=== PATIENT | female | born 1945 | race Caucasian/White ===

== ENCOUNTER 2017-07-06 08:58 | Emergency (ER) | payer OTHER ==
[~2017-07-06] VITALS: Ht 162.6 cm; Wt 90.7 kg
[2017-07-06 09:05] VITALS: BP 151/100
[2017-07-06] MEDS ORDERED: ASPirin 81 mg TAB PO ONE (09:15)
[2017-07-06 10:07] LABS: Basophils # (auto) 0.2 uL; Basophils % (auto) 2.2 % (0.0-2.0); Eosinophils # (auto) 0.1 uL; Eosinophils % (auto) 1.4 % (0.0-7.0); Hematocrit 39.9 % (36.0-46.0); Hemoglobin 13.3 g/dL (12.2-16.2); Lymphocytes # (auto) 1.6 uL; Lymphocytes % (auto) 19.6 % (10.0-50.0); Mean Corpuscular Hemoglobin 32.6 pg (28.0-32.0); Mean Corpuscular Hgb Conc. 33.4 g/dL (32.0-36.0); Mean Corpuscular Volume 97.5 fL (80.0-100.0); Monocytes # (auto) 0.4 uL; Monocytes % (auto) 4.3 % (0.0-12.0); Neutrophils % (auto) 72.5 % (37.0-80.0); Nucleated Red Blood Cells % 0.1 %; Platelet Count (auto) 246 10^3/uL (140-450); Red Blood Cells 4.09 10^6/uL (4.0-5.20); Red Cell Distribution Width 14.3 % (11.8-14.3); White Blood Cell 8.2 10^3/uL (4.4-10.8)
[2017-07-06 10:11] LABS: INR 0.92 (0.9-1.15); Partial Thromboplastin Time 28.5 sec (22.64-33.71)
[2017-07-06 10:16] LABS: Alanine Aminotransferase 18 U/L (13-56); Albumin 3.7 g/dL (3.4-5.0); Alkaline Phosphatase 71 U/L (45-117); Anion Gap 8 (5-15); Aspartate Aminotransferase 14 U/L (15-37); BUN/Creatinine Ratio 18.4; Bilirubin, Total 0.4 mg/dL (0.2-1.0); Blood Urea Nitrogen 16 mg/dL (7-18); Calcium 8.9 mg/dL (8.5-10.1); Carbon Dioxide 23 mmol/L (21-32); Chloride 108 mmol/L (98-107); GFR African American 83 mL/min; GFR Non-African American 68 mL/min; Glucose 126 mg/dL (74-106); Potassium 3.9 mmol/L (3.5-5.1); Sodium 139 mmol/L (136-145); Total Protein 8.4 g/dL (6.4-8.2)
[2017-07-06 10:59] LABS: Urine Bacteria NONE SEEN /hpf (None Seen); Urine Blood Negative /uL (Negative); Urine Mucus FEW (None Seen); Urine Specific Gravity 1.011 (1.001-1.035); Urine WBC <1 /hpf (0 - 5)
[2017-07-06] MEDS ORDERED: HYDROcodone-ACET 5/325MG TAB PO ONE (11:45)
== END 2017-07-06 12:13 | disposition home or self-care (01) ==
LOC: EDBD 08:58 → ER 08:58
DX: J44.9 Chronic obstructive pulmonary disease, unspecified (principal); F17.210 Nicotine dependence, cigarettes, uncomplicated
CPT/HCPCS: 36415; 71045; 80053; 81001; 83880; 84484; 85025; 85610; 85730; 93005

== ENCOUNTER 2022-05-23 04:10 | Inpatient (IN) | payer OTHER ==
[~2022-05-23] VITALS: Ht 162.6 cm; Wt 136.0 kg
[2022-05-23 05:03] LABS: Basophils # (auto) 0.1 10 ^3/uL (0-0.2); Basophils % (auto) 0.9 % (0.0-2.0); Eosinophils # (auto) 0 10 ^3/uL (0-0.8); Eosinophils % (auto) 0.6 % (0.0-7.0); Hematocrit 24.3 % (36.0-46.0); Hemoglobin 7.2 g/dL (12.2-16.2); Lymphocytes # (auto) 1.8 10 ^3/uL (0.4-5.4); Lymphocytes % (auto) 24.4 % (10.0-50.0); Mean Corpuscular Hemoglobin 21.1 pg (28.0-32.0); Mean Corpuscular Hgb Conc. 29.5 g/dL (32.0-36.0); Mean Corpuscular Volume 71.6 fL (80.0-100.0); Monocytes # (auto) 0.6 10 ^3/uL (0-1.3); Monocytes % (auto) 7.5 % (0.0-12.0); Neutrophils % (auto) 66.6 % (37.0-80.0); Nucleated Red Blood Cells % 0.1 %; Red Cell Distribution Width 19.3 % (11.8-14.3); White Blood Cell 7.5 10^3/uL (4.4-10.8)
[2022-05-23 05:12] LABS: Albumin 3.1 g/dL (3.4-5.0); Calcium 8.4 mg/dL (8.5-10.1); Partial Thromboplastin Time 24.9 sec (24.6-33.4); Potassium 4.4 mmol/L (3.5-5.1)
[2022-05-23] MEDS ORDERED: ALBUTEROL SULF 2.5 MG/0.5ML(0.5%) NEB SOLN NEB ONE (05:15)
[2022-05-23] MEDS ORDERED: IPRATROPIUM BROM 0.5 MG/2.5ML INH SOL NEB ONE (05:15)
[2022-05-23 05:16] LABS: Bilirubin, Total 0.5 mg/dL (0.2-1.0); Total Protein 7.4 g/dL (6.4-8.2)
[2022-05-23] MEDS ORDERED: ALBUTEROL MEDNEB 2.5 mg/3ml NEB ONE (05:28)
[2022-05-23 05:29] LABS: BUN/Creatinine Ratio 18.1
[2022-05-23] MEDS ORDERED: HEPARIN SODIUM (PORCINE) 5000 UNITS/ML 1ML VIAL IV ONE ×2 (05:45→13:05)
[2022-05-23] MEDS ORDERED: HEPARIN DRIP/D5W 100UNITS/ML 250 ML IV SCH ×4 (05:45→20:45)
[2022-05-23] MEDS ORDERED: FUROSEMIDE 20 MG/2 ML VIAL IV ONE (06:00)
[2022-05-23] MEDS ORDERED: ASPirin 325 MG TAB PO ONE (06:00)
[2022-05-23] MEDS ORDERED: DexAMETHasone SOD PHOS 10MG/1ML VIAL INJ IV ONE (06:00)
[2022-05-23] MEDS ORDERED: MORPHINE SULFATE INJ 2 MG/ml SYRG IV PRN (11:45)
[2022-05-23] MEDS ORDERED: NITROGLYCERIN 0.4 MG SL TAB SL PRN (11:45)
[2022-05-23] MEDS ORDERED: ALBUTEROL MEDNEB 2.5 mg/3ml NEB NEB PRN (12:30)
[2022-05-23] MEDS ORDERED: IPRATROPIUM BROM 0.5 MG/2.5ML INH SOL NEB PRN (12:30)
[2022-05-23 12:31] LABS: INR 0.97 (0.9-1.15); Partial Thromboplastin Time 31.4 sec (24.6-33.4)
[2022-05-23 15:08] VITALS: BP 125/45
[2022-05-23 15:23] VITALS: BP 129/63
[2022-05-23] MEDS ORDERED: ZOLPIDEM TARTRATE 5 MG TAB PO PRN (15:45)
[2022-05-23 15:48] VITALS: BP 132/56
[2022-05-23] MEDS ORDERED: ASPirin 81 mg TAB PO ONE (16:00)
[2022-05-23 17:27] VITALS: BP 117/71
[2022-05-23 20:19] LABS: INR 0.98 (0.9-1.15); Partial Thromboplastin Time 36.5 sec (24.6-33.4)
[2022-05-24 00:29] VITALS: BP 132/53
[2022-05-24 00:56] VITALS: BP 101/82
[2022-05-24 02:37] LABS: INR 1.03 (0.9-1.15); Partial Thromboplastin Time 62.1 sec (24.6-33.4)
[2022-05-24 02:45] VITALS: BP 133/55
[2022-05-24 03:00] VITALS: BP 133/53
[2022-05-24] MEDS ORDERED: LORazepam 2MG/ML-1ML VIAL IV PRN (04:45)
[2022-05-24] MEDS ORDERED: LORazepam 2MG/ML-1ML VIAL ONE (04:48)
[2022-05-24 06:34] LABS: Basophils # (auto) 0 10 ^3/uL (0-0.2); Basophils % (auto) 0.4 % (0.0-2.0); Eosinophils # (auto) 0 10 ^3/uL (0-0.8); Eosinophils % (auto) 0.3 % (0.0-7.0); Hematocrit 27.1 % (36.0-46.0); Hemoglobin 8.4 g/dL (12.2-16.2); Lymphocytes % (auto) 27.2 % (10.0-50.0); Mean Corpuscular Hemoglobin 22.9 pg (28.0-32.0); Mean Corpuscular Hgb Conc. 31.2 g/dL (32.0-36.0); Mean Corpuscular Volume 73.7 fL (80.0-100.0); Monocytes # (auto) 0.8 10 ^3/uL (0-1.3); Monocytes % (auto) 11.1 % (0.0-12.0); Neutrophils # (auto) 4.4 10 ^3/uL (1.6-8.6); Nucleated Red Blood Cells % 0.1 %; Red Blood Cells 3.67 10^6/uL (4.0-5.20); Red Cell Distribution Width 20.5 % (11.8-14.3); White Blood Cell 7.3 10^3/uL (4.4-10.8)
[2022-05-24 06:52] LABS: Albumin 2.8 g/dL (3.4-5.0); Calcium 8.2 mg/dL (8.5-10.1); Potassium 4.3 mmol/L (3.5-5.1)
[2022-05-24 06:58] LABS: BUN/Creatinine Ratio 20.2; Bilirubin, Total 0.6 mg/dL (0.2-1.0); Total Protein 6.3 g/dL (6.4-8.2)
[2022-05-24 08:55] LABS: INR 1.03 (0.9-1.15); Partial Thromboplastin Time 36.8 sec (24.6-33.4)
[2022-05-24] MEDS ORDERED: HEPARIN DRIP/D5W 100UNITS/ML 250 ML IV SCH (09:30)
[2022-05-24] MEDS ORDERED: ASPirin 81 mg TAB PO SCH (10:00)
[2022-05-24] MEDS: CEFTRIAXONE SODIUM 2 GM in D5W 5% 50 ML IV SCH (10:21)
[2022-05-24] MEDS: AZITHROMYCIN 500MG/ 250ML 250 ML IV SCH (10:21)
[2022-05-24 15:29] LABS: Basophils # (auto) 0.1 10 ^3/uL (0-0.2); Basophils % (auto) 0.6 % (0.0-2.0); Eosinophils # (auto) 0.1 10 ^3/uL (0-0.8); Mean Corpuscular Hemoglobin 22.9 pg (28.0-32.0); Monocytes # (auto) 0.7 10 ^3/uL (0-1.3); Neutrophils % (auto) 61.7 % (37.0-80.0)
[2022-05-24 15:31] LABS: Eosinophils % (auto) 1.2 % (0.0-7.0); Hematocrit 25.6 % (36.0-46.0); Lymphocytes # (auto) 2.4 10 ^3/uL (0.4-5.4); Lymphocytes % (auto) 28.2 % (10.0-50.0); Mean Corpuscular Hgb Conc. 31.1 g/dL (32.0-36.0); Mean Corpuscular Volume 73.7 fL (80.0-100.0); Monocytes % (auto) 8.3 % (0.0-12.0); Neutrophils # (auto) 5.3 10 ^3/uL (1.6-8.6); Red Blood Cells 3.48 10^6/uL (4.0-5.20); White Blood Cell 8.6 10^3/uL (4.4-10.8)
[2022-05-24 15:43] LABS: Partial Thromboplastin Time 55.3 sec (24.6-33.4)
[2022-05-24 21:55] LABS: INR 1.02 (0.9-1.15)
[2022-05-24] MEDS: PANTOPRAZOLE 40 MG/10 ML VIAL INJ IV SCH (22:00)
[2022-05-24] MEDS: HEPARIN DRIP/D5W 100UNITS/ML 250 ML IV SCH (22:36)
[2022-05-25 02:28] LABS: Basophils # (auto) 0.1 10 ^3/uL (0-0.2); Basophils % (auto) 0.7 % (0.0-2.0); Eosinophils # (auto) 0.2 10 ^3/uL (0-0.8); Eosinophils % (auto) 1.7 % (0.0-7.0); Hematocrit 25.9 % (36.0-46.0); Hemoglobin 7.9 g/dL (12.2-16.2); Lymphocytes # (auto) 2.4 10 ^3/uL (0.4-5.4); Lymphocytes % (auto) 24.5 % (10.0-50.0); Mean Corpuscular Hemoglobin 22.2 pg (28.0-32.0); Mean Corpuscular Hgb Conc. 30.3 g/dL (32.0-36.0); Mean Corpuscular Volume 73.5 fL (80.0-100.0); Monocytes # (auto) 0.8 10 ^3/uL (0-1.3); Monocytes % (auto) 7.8 % (0.0-12.0); Neutrophils # (auto) 6.4 10 ^3/uL (1.6-8.6); Neutrophils % (auto) 65.3 % (37.0-80.0); Red Blood Cells 3.53 10^6/uL (4.0-5.20); White Blood Cell 9.8 10^3/uL (4.4-10.8)
[2022-05-25 02:30] LABS: Red Cell Distribution Width 20.6 % (11.8-14.3)
[2022-05-25 03:56] LABS: Basophils # (auto) 0.1 10 ^3/uL (0-0.2); Basophils % (auto) 0.6 % (0.0-2.0); Eosinophils # (auto) 0.2 10 ^3/uL (0-0.8); Eosinophils % (auto) 2.5 % (0.0-7.0); Hematocrit 25.3 % (36.0-46.0); Hemoglobin 7.8 g/dL (12.2-16.2); Lymphocytes # (auto) 2.4 10 ^3/uL (0.4-5.4); Lymphocytes % (auto) 27.8 % (10.0-50.0); Mean Corpuscular Hemoglobin 22.5 pg (28.0-32.0); Mean Corpuscular Hgb Conc. 30.8 g/dL (32.0-36.0); Mean Corpuscular Volume 73.2 fL (80.0-100.0); Monocytes # (auto) 0.8 10 ^3/uL (0-1.3); Monocytes % (auto) 8.5 % (0.0-12.0); Neutrophils # (auto) 5.3 10 ^3/uL (1.6-8.6); Neutrophils % (auto) 60.6 % (37.0-80.0); Nucleated Red Blood Cells % 0.1 %; Red Blood Cells 3.46 10^6/uL (4.0-5.20); White Blood Cell 8.8 10^3/uL (4.4-10.8)
[2022-05-25 03:57] LABS: Red Cell Distribution Width 20.3 % (11.8-14.3)
[2022-05-25 04:00] LABS: Albumin 2.5 g/dL (3.4-5.0); Potassium 4.2 mmol/L (3.5-5.1)
[2022-05-25 04:02] LABS: INR 1.03 (0.9-1.15); Partial Thromboplastin Time 55.2 sec (24.6-33.4)
[2022-05-25 04:03] LABS: BUN/Creatinine Ratio 20.5; Bilirubin, Total 0.4 mg/dL (0.2-1.0); Total Protein 6.3 g/dL (6.4-8.2)
[2022-05-25] MEDS: AZITHROMYCIN 500MG/ 250ML 250 ML IV SCH (08:36)
[2022-05-25] MEDS: PANTOPRAZOLE 40 MG/10 ML VIAL INJ IV SCH ×2 (08:37→23:15)
[2022-05-25] MEDS: CEFTRIAXONE SODIUM 2 GM in D5W 5% 50 ML IV SCH (10:09)
[2022-05-25 11:07] LABS: INR 1.05 (0.9-1.15)
[2022-05-25 11:32] LABS: Partial Thromboplastin Time > 139.0 sec (24.6-33.4)
[2022-05-25] MEDS: HEPARIN DRIP/D5W 100UNITS/ML 250 ML IV SCH (11:40)
[2022-05-25 14:48] LABS: Basophils # (auto) 0.1 10 ^3/uL (0-0.2); Basophils % (auto) 0.8 % (0.0-2.0); Eosinophils # (auto) 0.3 10 ^3/uL (0-0.8); Hematocrit 25.6 % (36.0-46.0); Lymphocytes # (auto) 2.4 10 ^3/uL (0.4-5.4); Monocytes # (auto) 0.7 10 ^3/uL (0-1.3); Neutrophils # (auto) 3.4 10 ^3/uL (1.6-8.6); Nucleated Red Blood Cells % 0.1 %; White Blood Cell 6.8 10^3/uL (4.4-10.8)
[2022-05-25 14:50] LABS: Eosinophils % (auto) 4.1 % (0.0-7.0); Hemoglobin 7.9 g/dL (12.2-16.2); Lymphocytes % (auto) 34.9 % (10.0-50.0); Mean Corpuscular Hemoglobin 22.7 pg (28.0-32.0); Mean Corpuscular Hgb Conc. 30.8 g/dL (32.0-36.0); Mean Corpuscular Volume 73.8 fL (80.0-100.0); Neutrophils % (auto) 50.2 % (37.0-80.0); Red Blood Cells 3.47 10^6/uL (4.0-5.20)
[2022-05-25 15:20] LABS: Red Cell Distribution Width 21.1 % (11.8-14.3)
[2022-05-25 19:40] LABS: INR 1.03 (0.9-1.15); Partial Thromboplastin Time 47.2 sec (24.6-33.4)
[2022-05-25 22:18] VITALS: BP 151/68
[2022-05-25 22:27] VITALS: BP 151/68
[2022-05-25] MEDS ORDERED: BENA20TA14 PO (22:31)
[2022-05-25] MEDS ORDERED: METO25TA93 PO (22:31)
[2022-05-25] MEDS ORDERED: HYDR12.56 PO (22:31)
[2022-05-25] MEDS ORDERED: ASPI1TAB20 PO (22:32)
[2022-05-25] MEDS: MELATONIN 5 MG TAB PO SCH (23:15)
[2022-05-25] MEDS ORDERED: MELATONIN 5 MG TAB ONE (23:21)
[2022-05-26 02:11] LABS: Basophils # (auto) 0.1 10 ^3/uL (0-0.2); Eosinophils # (auto) 0.5 10 ^3/uL (0-0.8); Mean Corpuscular Hemoglobin 22.3 pg (28.0-32.0); Neutrophils # (auto) 3.9 10 ^3/uL (1.6-8.6); White Blood Cell 8.1 10^3/uL (4.4-10.8)
[2022-05-26 02:13] LABS: Basophils % (auto) 0.8 % (0.0-2.0); Eosinophils % (auto) 6.6 % (0.0-7.0); Hematocrit 25.7 % (36.0-46.0); Hemoglobin 7.7 g/dL (12.2-16.2); Lymphocytes # (auto) 2.7 10 ^3/uL (0.4-5.4); Lymphocytes % (auto) 33.9 % (10.0-50.0); Mean Corpuscular Hgb Conc. 30.1 g/dL (32.0-36.0); Mean Corpuscular Volume 74.4 fL (80.0-100.0); Monocytes # (auto) 0.8 10 ^3/uL (0-1.3); Monocytes % (auto) 10.2 % (0.0-12.0); Neutrophils % (auto) 48.5 % (37.0-80.0); Red Blood Cells 3.46 10^6/uL (4.0-5.20)
[2022-05-26 02:38] LABS: Red Cell Distribution Width 20.7 % (11.8-14.3)
[2022-05-26] MEDS: HEPARIN DRIP/D5W 100UNITS/ML 250 ML IV SCH ×2 (02:51→08:35)
[2022-05-26 04:31] LABS: Urine Bacteria FEW /hpf (None Seen); Urine Blood 3+ /uL (Negative); Urine Specific Gravity 1.008 (1.001-1.035); Urine WBC 4 /hpf (0 - 5)
[2022-05-26 05:00] VITALS: BP 139/63
[2022-05-26 08:00] VITALS: BP 143/75
[2022-05-26 09:06] LABS: INR 1.08 (0.9-1.15); Partial Thromboplastin Time 66.9 sec (24.6-33.4)
[2022-05-26] MEDS: PANTOPRAZOLE 40 MG/10 ML VIAL INJ IV SCH ×2 (09:47→21:21)
[2022-05-26] MEDS: CEFTRIAXONE SODIUM 2 GM in D5W 5% 50 ML IV SCH (09:47)
[2022-05-26] MEDS: AZITHROMYCIN 500MG/ 250ML 250 ML IV SCH (11:12)
[2022-05-26 12:00] VITALS: BP 146/68
[2022-05-26] MEDS ORDERED: diphenhdrAMINE HCL 50 MG/1 ML VL ONE (12:29)
[2022-05-26] MEDS ORDERED: fentaNYL CITRATE 100 MCG/2 ML VL ONE (12:30)
[2022-05-26] MEDS ORDERED: MIDAZOLAM HCL 2MG/2ML 2ml VIAL (1mg/ml) ONE (12:30)
[2022-05-26] MEDS ORDERED: LIDOCAINE VISCOUS 2% 15ML UD ONE (12:38)
[2022-05-26 15:52] LABS: INR 1.04 (0.9-1.15); Partial Thromboplastin Time 28.8 sec (24.6-33.4)
[2022-05-26 16:00] VITALS: BP 136/58
[2022-05-26] MEDS ORDERED: HEPARIN SODIUM (PORCINE) 5000 UNITS/ML 1ML VIAL IV ONE (16:30)
[2022-05-26 20:00] VITALS: BP 139/58
[2022-05-26 22:00] VITALS: BP 139/58
[2022-05-26 22:50] LABS: INR 1.04 (0.9-1.15); Partial Thromboplastin Time 31.5 sec (24.6-33.4)
[2022-05-27] VITALS (9 sets, daily range): BP systolic 128–150; BP diastolic 51–77
[2022-05-27] MEDS ORDERED: LIDOCAINE 2%HCL (LOCAL ANESTH.) INJ 20ML MDV ONE (07:57)
[2022-05-27] MEDS ORDERED: ANGIOMAX 250 MG VIAL IV ONE (08:01)
[2022-05-27] MEDS ORDERED: fentaNYL CITRATE 100 MCG/2 ML VL ONE (08:01)
[2022-05-27] MEDS ORDERED: MIDAZOLAM HCL 2MG/2ML 2ml VIAL (1mg/ml) ONE (08:02)
[2022-05-27] MEDS ORDERED: SODIUM CHL 0.9% 0 ML ONE (08:02)
[2022-05-27] MEDS ORDERED: VERAPAMIL 2.5MG/ML INJ 2ML VIAL IV ONE (08:03)
[2022-05-27] MEDS ORDERED: HEPARIN SODIUM (PORCINE) 5000 UNITS/ML 1ML VIAL ONE (08:03)
[2022-05-27] MEDS ORDERED: ONDANSETRON HCL 4 MG/2 ML VIAL ONE (08:25)
[2022-05-27] MEDS ORDERED: IODIXANOL 320MG/ML 100ML BTL IV ONE (08:35)
[2022-05-27] MEDS: CEFTRIAXONE SODIUM 2 GM in D5W 5% 50 ML IV SCH (10:52)
[2022-05-27] MEDS: PANTOPRAZOLE 40 MG/10 ML VIAL INJ IV SCH (10:52)
[2022-05-27] MEDS ORDERED: ATO40T PO (11:13)
[2022-05-27] MEDS ORDERED: FERR324T4 PO (11:13)
[2022-05-27] MEDS ORDERED: PANT40TA2 PO (11:13)
[2022-05-27] MEDS: HEPARIN DRIP/D5W 100UNITS/ML 250 ML IV SCH ×3 (11:19→18:57)
[2022-05-27] MEDS: AZITHROMYCIN 500MG/ 250ML 250 ML IV SCH (12:00)
[2022-05-27] MEDS: ACETAMINOPHEN 500 MG TAB PO PRN ×2 (12:11→18:30)
[2022-05-27] MEDS ORDERED: MILK OF MAGNESIA 30ML SUSP PO PRN (18:30)
[2022-05-27] MEDS: FERROUS SULFATE 325mg EC TAB PO SCH (18:30)
[2022-05-27 18:31] LABS: INR 1.05 (0.9-1.15); Partial Thromboplastin Time 26.2 sec (24.6-33.4)
[2022-05-27] MEDS ORDERED: HEPARIN SODIUM (PORCINE) 5000 UNITS/ML 1ML VIAL IV ONE (18:45)
[2022-05-27] MEDS: ATORVASTATIN 20 MG TAB PO SCH (21:33)
[2022-05-27] MEDS: PANTOPRAZOLE 40 MG TAB PO SCH (21:33)
[2022-05-27] MEDS: DOCUSATE SOD 100 MG CAP PO SCH (21:33)
[2022-05-27] MEDS: MELATONIN 5 MG TAB PO SCH (21:38)
[2022-05-27] MEDS: TEMAZEPAM 15 MG CAP PO PRN (23:44)
[2022-05-28 01:07] LABS: INR 1.06 (0.9-1.15); Partial Thromboplastin Time 27.6 sec (24.6-33.4)
[2022-05-28] MEDS ORDERED: HEPARIN SODIUM (PORCINE) 5000 UNITS/ML 1ML VIAL IV ONE ×3 (02:00→18:45)
[2022-05-28] MEDS: HEPARIN DRIP/D5W 100UNITS/ML 250 ML IV SCH ×2 (04:46→19:00)
[2022-05-28 05:00] VITALS: BP_SYST 135; BP_SYST 138; BP_DIAS 52
[2022-05-28 06:07] LABS: Basophils # (auto) 0.1 10 ^3/uL (0-0.2); Basophils % (auto) 0.7 % (0.0-2.0); Eosinophils # (auto) 0.8 10 ^3/uL (0-0.8); Eosinophils % (auto) 9.9 % (0.0-7.0); Hematocrit 28.9 % (36.0-46.0); Hemoglobin 8.8 g/dL (12.2-16.2); Lymphocytes % (auto) 25.5 % (10.0-50.0); Mean Corpuscular Hemoglobin 23.1 pg (28.0-32.0); Mean Corpuscular Hgb Conc. 30.5 g/dL (32.0-36.0); Mean Corpuscular Volume 75.7 fL (80.0-100.0); Monocytes # (auto) 0.8 10 ^3/uL (0-1.3); Monocytes % (auto) 10.1 % (0.0-12.0); Neutrophils # (auto) 4.1 10 ^3/uL (1.6-8.6); Neutrophils % (auto) 53.8 % (37.0-80.0); Red Blood Cells 3.81 10^6/uL (4.0-5.20); White Blood Cell 7.7 10^3/uL (4.4-10.8)
[2022-05-28 06:08] LABS: Red Cell Distribution Width 21.3 % (11.8-14.3)
[2022-05-28 06:13] LABS: BUN/Creatinine Ratio 12.6; Calcium 9.2 mg/dL (8.5-10.1); Potassium 4.4 mmol/L (3.5-5.1)
[2022-05-28] MEDS: FERROUS SULFATE 325mg EC TAB PO SCH ×2 (07:50→18:00)
[2022-05-28 08:00] VITALS: BP 129/67
[2022-05-28 08:55] LABS: INR 1.06 (0.9-1.15); Partial Thromboplastin Time 26.4 sec (24.6-33.4)
[2022-05-28] MEDS ORDERED: HEPARIN DRIP/D5W 100UNITS/ML 250 ML IV SCH (09:30)
[2022-05-28] MEDS: DOCUSATE SOD 100 MG CAP PO SCH ×2 (10:50→21:07)
[2022-05-28] MEDS: PANTOPRAZOLE 40 MG TAB PO SCH ×2 (10:50→21:07)
[2022-05-28] MEDS: METOPROLOL SUCCINATE XL 50 MG TAB PO SCH (10:51)
[2022-05-28] MEDS: CEFTRIAXONE SODIUM 2 GM in D5W 5% 50 ML IV SCH (10:52)
[2022-05-28 12:00] VITALS: BP 118/66
[2022-05-28] MEDS: AZITHROMYCIN 500MG/ 250ML 250 ML IV SCH (12:30)
[2022-05-28 16:00] VITALS: BP 125/64
[2022-05-28 17:48] LABS: INR 1.06 (0.9-1.15); Partial Thromboplastin Time 26.9 sec (24.6-33.4)
[2022-05-28] MEDS: ATORVASTATIN 20 MG TAB PO SCH (21:07)
[2022-05-28] MEDS: MELATONIN 5 MG TAB PO SCH (21:08)
[2022-05-28 22:00] VITALS: BP 132/57
[2022-05-28] MEDS: TEMAZEPAM 15 MG CAP PO PRN (23:12)
[2022-05-29 01:30] LABS: INR 1.05 (0.9-1.15); Partial Thromboplastin Time 27.1 sec (24.6-33.4)
[2022-05-29] MEDS ORDERED: HEPARIN SODIUM (PORCINE) 5000 UNITS/ML 1ML VIAL IV ONE ×2 (02:00→11:45)
[2022-05-29] MEDS: HEPARIN DRIP/D5W 100UNITS/ML 250 ML IV SCH (02:16)
[2022-05-29 05:00] VITALS: BP 132/60
[2022-05-29 05:52] LABS: Basophils # (auto) 0.1 10 ^3/uL (0-0.2); Basophils % (auto) 0.8 % (0.0-2.0); Eosinophils # (auto) 0.8 10 ^3/uL (0-0.8); Eosinophils % (auto) 10.4 % (0.0-7.0); Hematocrit 28.4 % (36.0-46.0); Hemoglobin 8.7 g/dL (12.2-16.2); Lymphocytes # (auto) 2.2 10 ^3/uL (0.4-5.4); Lymphocytes % (auto) 27.8 % (10.0-50.0); Mean Corpuscular Hemoglobin 22.8 pg (28.0-32.0); Mean Corpuscular Hgb Conc. 30.5 g/dL (32.0-36.0); Mean Corpuscular Volume 74.6 fL (80.0-100.0); Monocytes # (auto) 0.8 10 ^3/uL (0-1.3); Monocytes % (auto) 10.6 % (0.0-12.0); Neutrophils # (auto) 3.9 10 ^3/uL (1.6-8.6); Neutrophils % (auto) 50.4 % (37.0-80.0); Nucleated Red Blood Cells % 0.1 %; Red Blood Cells 3.81 10^6/uL (4.0-5.20); White Blood Cell 7.7 10^3/uL (4.4-10.8)
[2022-05-29 05:54] LABS: Red Cell Distribution Width 21.4 % (11.8-14.3)
[2022-05-29 06:13] LABS: Calcium 8.7 mg/dL (8.5-10.1); Potassium 4.7 mmol/L (3.5-5.1)
[2022-05-29] MEDS: FERROUS SULFATE 325mg EC TAB PO SCH ×2 (08:46→19:38)
[2022-05-29 08:48] LABS: INR 1.06 (0.9-1.15); Partial Thromboplastin Time 25.9 sec (24.6-33.4)
[2022-05-29 09:00] VITALS: BP 128/37
[2022-05-29] MEDS: PANTOPRAZOLE 40 MG TAB PO SCH ×2 (10:35→21:29)
[2022-05-29] MEDS: METOPROLOL SUCCINATE XL 50 MG TAB PO SCH (10:39)
[2022-05-29] MEDS: AZITHROMYCIN 500MG/ 250ML 250 ML IV SCH (10:45)
[2022-05-29] MEDS: DOCUSATE SOD 100 MG CAP PO SCH ×2 (10:46→21:28)
[2022-05-29] MEDS: CEFTRIAXONE SODIUM 2 GM in D5W 5% 50 ML IV SCH (10:58)
[2022-05-29] MEDS: ENOXAPARIN SOD 100 MG/1 ML SYRINGE SC SCH ×2 (11:44→21:29)
[2022-05-29 12:51] VITALS: BP 146/50
[2022-05-29] MEDS: ACETAMINOPHEN 500 MG TAB PO PRN (14:20)
[2022-05-29] MEDS ORDERED: ACETAMINOPHEN 500 MG TAB PO ONE (14:30)
[2022-05-29 17:00] VITALS: BP 122/53
[2022-05-29] MEDS ORDERED: LACTULOSE 20Gm/30ML SOLN PO PRN (21:15)
[2022-05-29] MEDS: ATORVASTATIN 20 MG TAB PO SCH (21:28)
[2022-05-29] MEDS: MELATONIN 5 MG TAB PO SCH (21:45)
[2022-05-29 22:40] VITALS: BP 127/55
[2022-05-29] MEDS: TEMAZEPAM 15 MG CAP PO PRN (22:57)
[2022-05-30 07:33] LABS: BUN/Creatinine Ratio 14.4; Calcium 9.1 mg/dL (8.5-10.1); Potassium 4.5 mmol/L (3.5-5.1)
[2022-05-30 07:39] LABS: Basophils # (auto) 0.1 10 ^3/uL (0-0.2); Eosinophils # (auto) 0.8 10 ^3/uL (0-0.8); Eosinophils % (auto) 10.2 % (0.0-7.0); Hematocrit 31.1 % (36.0-46.0); Hemoglobin 9.3 g/dL (12.2-16.2); Lymphocytes # (auto) 1.6 10 ^3/uL (0.4-5.4); Lymphocytes % (auto) 21.4 % (10.0-50.0); Mean Corpuscular Hgb Conc. 29.9 g/dL (32.0-36.0); Monocytes # (auto) 0.8 10 ^3/uL (0-1.3); Neutrophils # (auto) 4.3 10 ^3/uL (1.6-8.6); Neutrophils % (auto) 57.4 % (37.0-80.0); Nucleated Red Blood Cells % 0.1 %; Red Blood Cells 4.14 10^6/uL (4.0-5.20); White Blood Cell 7.5 10^3/uL (4.4-10.8)
[2022-05-30 07:43] LABS: Mean Corpuscular Hemoglobin 22.4 pg (28.0-32.0); Red Cell Distribution Width 21.8 % (11.8-14.3)
[2022-05-30] MEDS: DOCUSATE SOD 100 MG CAP PO SCH (08:04)
[2022-05-30] MEDS: CEFTRIAXONE SODIUM 2 GM in D5W 5% 50 ML IV SCH (08:04)
[2022-05-30] MEDS: FERROUS SULFATE 325mg EC TAB PO SCH (08:04)
[2022-05-30] MEDS: PANTOPRAZOLE 40 MG TAB PO SCH (08:04)
[2022-05-30] MEDS: ENOXAPARIN SOD 100 MG/1 ML SYRINGE SC SCH (08:20)
[2022-05-30 09:55] VITALS: BP 138/54
[2022-05-30] MEDS: AZITHROMYCIN 500MG/ 250ML 250 ML IV SCH (10:00)
[2022-05-30] MEDS: METOPROLOL SUCCINATE XL 50 MG TAB PO SCH (11:39)
[2022-05-30 13:00] VITALS: BP 133/59
== END 2022-05-30 15:15 | disposition short-term general hospital (02) | DRG 280 ==
LOC: EDUNIT# 04:10 → EDBD 04:10 → ER 04:10 → TELE 11:52 → TELE-EAST 05-25 21:12
PROVIDERS: ADMIT Radiology Diagnostic Radiology; ATTEND Radiology Diagnostic Radiology
PROC: 30233N1 Transfusion of Nonautologous Red Blood Cells into Peripheral Vein, Percutaneous Approach (ICD-10-PCS; principal; 2022-05-23)
PROC: 0DJ08ZZ Inspection of Upper Intestinal Tract, Via Natural or Artificial Opening Endoscopic (ICD-10-PCS; 2022-05-26)
PROC: B2111ZZ Fluoroscopy of Multiple Coronary Arteries using Low Osmolar Contrast (ICD-10-PCS; 2022-05-27)
PROC: B2151ZZ Fluoroscopy of Left Heart using Low Osmolar Contrast (ICD-10-PCS; 2022-05-27)
PROC: 4A023N8 Measurement of Cardiac Sampling and Pressure, Bilateral, Percutaneous Approach (ICD-10-PCS; 2022-05-27)
PROC: B41F1ZZ Fluoroscopy of Right Lower Extremity Arteries using Low Osmolar Contrast (ICD-10-PCS; 2022-05-27)
DX: I21.4 Non-ST elevation (NSTEMI) myocardial infarction (principal); J96.01 Acute respiratory failure with hypoxia; Z68.43 Body mass index [BMI] 50.0-59.9, adult; J44.1 Chronic obstructive pulmonary disease with (acute) exacerbation; D50.9 Iron deficiency anemia, unspecified; E66.01 Morbid (severe) obesity due to excess calories; I25.10 Atherosclerotic heart disease of native coronary artery without angina pectoris; Z20.822 Contact with and (suspected) exposure to COVID-19; K25.9 Gastric ulcer, unspecified as acute or chronic, without hemorrhage or perforation; I11.0 Hypertensive heart disease with heart failure; I50.9 Heart failure, unspecified
CPT/HCPCS: 36415; 36430; 43235; 71045; 75710; 80048; 80053; 81001; 83880; 84484; 85025; 85610; 85730; 86850; 86900; 86901; 86920; 87426; 93005; 93306; 93460; 94640; 96365; 96375; 99152; 99153; 99291; C1751; C9113; G0378; J0696; J1100; J2250; J2405; J7060; Q9967